=== PATIENT | female | born 1950 | race Caucasian/White ===

== ENCOUNTER → 2016-12-03 | Outpatient (CLI) | payer MEDICARE ==
--- NOTE | 2016-12-04 11:04 | MM ---
Reason for exam: screening (asymptomatic). Last mammogram was performed 2 years and 5 months ago. History: Patient is postmenopausal and has history of other cancer at age 63. Family history of breast cancer in paternal cousin at age 60. Benign right mammotome panel of the right breast, December 26, 2012. Took estrogen for 1 year beginning at age 49. Physical Findings: A clinical breast exam by your physician is recommended on an annual basis and results should be correlated with mammographic findings. MG Screening Mammo w CAD Bilateral CC and MLO view(s) were taken. Prior study comparison: July 14, 2014, bilateral MG screening mammo w CAD. July 13, 2013, right diagnostic mammogram w/CAD. There are scattered fibroglandular densities. Finding: There is a typically benign 6-7 mm high density mass in the subareolar position of the right breast consistent with probable cyst. New finding since July 14, 2014 and July 13, 2013. ASSESSMENT: Incomplete: need additional imaging evaluation, BI-RAD 0 RECOMMENDATION: Special view mammogram of the right breast. If lesion persists on supplemental views, image directed ultrasound is recommended. [facility] will attempt to contact patient to return for supplemental views and ultrasound if indicated.
== END | disposition home or self-care (01) ==
LOC: RADMAMWWP 12:52
PROVIDERS: ATTEND Family Medicine
DX: Z12.31 Encounter for screening mammogram for malignant neoplasm of breast (principal); R92.2 Inconclusive mammogram

== ENCOUNTER → 2016-12-12 | Outpatient (CLI) | payer MEDICARE ==
--- NOTE | 2016-12-13 08:23 | MM ---
Reason for exam: additional evaluation requested from abnormal screening. Last mammogram was performed less than 1 month ago. History: Patient is postmenopausal and has history of other cancer at age 63. Family history of breast cancer in paternal cousin at age 60. Benign right mammotome panel of the right breast, December 26, 2012. Took estrogen for 1 year beginning at age 49. Physical Findings: Nurse did not find any significant physical abnormalities on exam. MG 3D Work Up W/Cad RT LM, spot compression MLO, and spot compression CC view(s) were taken of the right breast. Prior study comparison: December 03, 2016, bilateral MG screening mammo w CAD. July 14, 2014, bilateral MG screening mammo w CAD. Finding: There is a 6 mm circumscribed round mass in the lower outer quadrant, anterior position of the right breast, persists on additional views. These results were verbally communicated with the patient and result sheet given to the patient on 12/12/16. ASSESSMENT: Incomplete: need additional imaging evaluation, BI-RAD 0 RECOMMENDATION: Ultrasound of the right breast.
--- NOTE | 2016-12-13 08:24 | USB ---
Reason for exam: additional evaluation requested from abnormal screening. History: Patient is postmenopausal and has history of other cancer at age 63. Family history of breast cancer in paternal cousin at age 60. Benign right mammotome panel of the right breast, December 26, 2012. Took estrogen for 1 year beginning at age 49. US Breast Workup Limited RT Right breast ultrasound demonstrates a 5 x 5 x 5mm round, solid, hypoechoic lesion at 8 o'clock. These results were verbally communicated with the patient and result sheet given to the patient on 12/12/16. ASSESSMENT: Suspicious, BI-RAD 4 RECOMMENDATION: Ultrasound core biopsy of the right breast. Called Dr. Sebastian with mammographic findings and has scheduled an appointment for the patient for 01/01/17 at 2:[address] Ferguson. PRELIMINARY REPORT CALLED AND FAXED TO DR. FERGUSON ON 12/13/16 AT 300/TP.
== END | disposition home or self-care (01) ==
LOC: RADMAMWWP 13:48
PROVIDERS: ATTEND Family Medicine
DX: R92.8 Other abnormal and inconclusive findings on diagnostic imaging of breast (principal)
CPT/HCPCS: 76642; G0206; G0279

== ENCOUNTER → 2017-01-17 | Day surgery (SDC) | payer MEDICARE ==
[~2017-01-17] MED LIST: ALPRAZolam 0.25 MG TAB ONE; BACITRACIN OINT 1 EACH PACKET TOPICAL ONE; LIDOCAINE 1% INJ 10MG/ML (20 ML MDV) ONE; LIDOCAINE 1%-EPI 1:100,000 20 ML VIAL ONE; SODIUM BICARB 4% 5 ML VIAL (0.48 MEQ/ML) ONE
--- NOTE | 2017-01-17 13:16 | USB ---
EXAMINATION TYPE: US biopsy breast VAD RT DATE OF EXAM: 01/17/2017 1:01 PM CLINICAL HISTORY: R92.8 Abnormal Mammogram. TECHNIQUE: Ultrasound guided core biopsy of right breast. COMPARISON: Previous mammogram dated 12/03/2016 and previous ultrasound dated 12/12 FINDINGS: The procedure of ultrasound guided core biopsy was explained to the patient. Benefits, alternatives, and risks were discussed. An informed consent was then obtained. The patient was placed in supine positioning for imaging and for the procedure. The overlying skin was prepped and draped in usual sterile fashion. Lidocaine buffered with bicarbonate was used as anesthetic into the skin and subcutaneous tissue up to area of concern in the right breast. A clau was made with surgical scalpel. Under ultrasound guidance, a 12-gauge vacuum assisted biopsy gun device was used to obtain 7 core samples. Following this, a biopsy clip was left in lesion. The patient tolerated the procedure well without any immediate complication. The patient was kept in the radiology department for short stay after the procedure and then discharged home in stable condition. A two-view mammogram was performed following the procedure to confirm clip placement. IMPRESSION: Successful, uncomplicated ultrasound guided core biopsy of area of concern in the right breast, full pathology results to follow. Pathology Results: High Risk BREAST, RIGHT, ULTRASOUND GUIDED CORE BIOPSY: ATYPICAL LOBULAR HYPERPLASIA AND INTRADUCTAL PAPILLOMA. FIBROCYSTIC CHANGE (STROMAL FIBROSIS, CYST FORMATION, APOCRINE METAPLASIA, ADENOSIS AND DUCT HYPERPLASIA). Recommendation Surgical consult of the right breast. [facility]
--- NOTE | 2017-01-17 13:17 | MM ---
EXAMINATION TYPE: US biopsy breast VAD RT DATE OF EXAM: 01/17/2017 1:01 PM CLINICAL HISTORY: R92.8 Abnormal Mammogram. TECHNIQUE: Ultrasound guided core biopsy of right breast. COMPARISON: Previous mammogram dated 12/03/2016 and previous ultrasound dated 12/12/2016 FINDINGS: The procedure of ultrasound guided core biopsy was explained to the patient. Benefits, alt ernatives, and risks were discussed. An informed consent was then obtained. The patient was placed in supine positioning for imaging and for the procedure. The overlying skin w as prepped and draped in usual sterile fashion. Lidocaine buffered with bicarbonate was used as anes thetic into the skin and subcutaneous tissue up to area of concern in the right breast. A clau was m aysha with surgical scalpel. Under ultrasound guidance, a 12-gauge vacuum assisted biopsy gun device was used to obtain 7 core andrew ples. Following this, a biopsy clip was left in lesion. The patient tolerated the procedure well without any immediate complication. The patient was kept in the radiology department for short stay after the procedure and then discharged home in stable condi tion. A two-view mammogram was performed following the procedure to confirm clip placement. IMPRESSION: Successful, uncomplicated ultrasound guided core biopsy of area of concern in the right b reast, full pathology results to follow.
== END ==
LOC: RADUSWWP 11:20
PROVIDERS: ATTEND Surgery
DX: R92.8 Other abnormal and inconclusive findings on diagnostic imaging of breast (principal); N62 Hypertrophy of breast; D24.1 Benign neoplasm of right breast; N60.31 Fibrosclerosis of right breast; N60.81 Other benign mammary dysplasias of right breast; N60.21 Fibroadenosis of right breast; N60.01 Solitary cyst of right breast; Z88.2 Allergy status to sulfonamides
CPT/HCPCS: 88305; 88342; 88341; 19083; G0206; A4648; J2001

== ENCOUNTER 2017-02-01 06:30 | Day surgery (SDC) | payer MEDICARE ==
[2017-01-29 14:18] VITALS: BMI 27.0
[~2017-02-01 06:30] MED LIST changes: -ALPRAZolam 0.25 MG TAB ONE; -BACITRACIN OINT 1 EACH PACKET TOPICAL ONE; +DEXAMETHASONE SOD PHOSPHATE 10 MG/ML 1 ML VIAL IV ONE; +HEPARIN SODIUM,PORCINE 5,000 UNIT/ML 1 ML VIAL SQ ONE; +HYDROmorphone 1 MG/ML 1 ML SYRINGE IVP PRN; -LIDOCAINE 1% INJ 10MG/ML (20 ML MDV) ONE; -LIDOCAINE 1%-EPI 1:100,000 20 ML VIAL ONE; +MIDAZOLAM 2 MG/2 ML VIAL IV PRN; +ONDANSETRON 4 MG/2 ML VIAL IVP ONE; -SODIUM BICARB 4% 5 ML VIAL (0.48 MEQ/ML) ONE; +ceFAZolin 2 GM in SODIUM CHLORIDE 0.9% 100 ML IVPB ONE
[2017-02-01] MEDS ORDERED: ALPRAZolam 0.25 MG TAB PO STA (07:14)
[2017-02-01 07:27] VITALS: RESP 16
[2017-02-01] MEDS: LACTATED RINGERS 1,000 ML IV SCH ×2 (07:38→10:58)
--- NOTE | 2017-02-01 07:56 | P.GSHP ---
History of Present Illness H&P Date: 02/01/17 Chief Complaint: Abnormal right mammogram This is a 58-year-old female who's had recent mammogram. Patient has an abnormal right mammogram. She presents today for right breast biopsy with needle localization. The patient a previous core biopsy which shows intraductal papilloma and atypical lobular hyperplasia. - Constitutional Constitutional: Reports as per HPI Past Medical History Past Medical History: Hypertension Additional Past Medical History / Comment(s): ABNORMAL MAMMOGRAM, HX OF PRE CANCEROUS SKIN LESIONS REMOVED History of Any Multi-Drug Resistant Organisms: None Reported Past Surgical History: Appendectomy Additional Past Surgical History / Comment(s): RT BREAST CORE BX 01/17/16 Past Anesthesia/Blood Transfusion Reactions: No Reported Reaction Past Psychological History: No Psychological Hx Reported Smoking Status: Never smoker Past Alcohol Use History: None Reported Past Drug Use History: None Reported - Past Family History Father Family Medical History: Cancer Additional Family Medical History / Comment(s): PROSTATE Medications and Allergies Home Medications Medication Instructions Recorded Confirmed Type Metoprolol Tartrate [Lopressor] 100 mg PO QAM 01/29/17 02/01/17 History Allergies Allergy/AdvReac Type Severity Reaction Status Date / Time sulfamethoxazole Allergy Swelling Verified 02/01/17 07:12 [From Bactrim] trimethoprim [From Bactrim] Allergy Swelling Verified 02/01/17 07:12 Surgical - Exam Vital Signs Temp Pulse Resp BP Pulse Ox 97.4 F L 68 16 167/96 95 02/01/17 07:26 02/01/17 07:26 02/01/17 07:26 02/01/17 07:26 02/01/17 07:26 - General well developed, no distress - Eyes PERRL - ENT normal pinna - Neck no masses - Respiratory normal expansion - Cardiovascular Rhythm: regular - Abdomen Abdomen: soft, non tender Breast exam is within normal limits Assessment and Plan Plan: Abnormal mammogram. We'll perform right breast needle localized biopsy.
[2017-02-01] MEDS ORDERED: SODIUM BICARB 4% 5 ML VIAL (0.48 MEQ/ML) MISCELLANE ONE (08:22)
[2017-02-01] MEDS ORDERED: LIDOCAINE 1% INJ 10MG/ML (20 ML MDV) SQ ONE (08:22)
[2017-02-01] MEDS ORDERED: fentaNYL (PF) 50 MCG/ML 2 ML AMP ONE (09:28)
[2017-02-01] MEDS ORDERED: SUCCINYLCHOLINE CHLORIDE 100 MG/5 ML SYR IV ONE (09:28)
[2017-02-01] MEDS ORDERED: ePHEDrine 50 MG/ML 1 ML AMP ONE (09:28)
[2017-02-01] MEDS ORDERED: PROPOFOL 10 MG/ML 20 ML VIAL IV ONE (09:28)
[2017-02-01] MEDS ORDERED: LIDOCAINE 1% INJ 10MG/ML (20 ML MDV) ONE (09:28)
[2017-02-01] MEDS ORDERED: MIDAZOLAM 2 MG/2 ML VIAL ONE (09:28)
[2017-02-01] MEDS ORDERED: BUPIVACAIN-EPI 0.25%-1:200,000 30 ML VIAL SQ ONE (09:56)
--- NOTE | 2017-02-01 10:30 | P.OP ---
Date of Procedure: 02/01/17 Preoperative Diagnosis: Abnormal right mammogram Postoperative Diagnosis: Defer to pathology Procedure(s) Performed: Right breast biopsy with needle localization Anesthesia: MAC Surgeon: Shankar Ferguson Estimated Blood Loss (ml): 5 Pathology: other (Right breast biopsy) Condition: stable Disposition: PACU Description of Procedure: The patient's placed on the operating table in the supine position. He she received generous he. Her right breast was prepped and draped usual sterile fashion. The wire had been placed near the 8 o'clock position. A skin incision was made the wire site and then using cautery and Harmonic scissors a core tissue was removed around the wire. The specimen was sent to mammography and the clip was contained within the biopsy cavity. The wound was packed for hemostasis. There is no bleeding seen. The skin was closed interrupted 3-0 Monocryl suture. Dermabond dressings was applied. Patient top she will was sent to recovery in stable condition.
[2017-02-01 10:48] VITALS: TEMP 97
--- NOTE | 2017-02-01 11:05 | MM ---
EXAMINATION TYPE: MG pre op needle loc RT DATE OF EXAM: 02/01/2017 9:13 AM COMPARISON: Previous mammogram dated 01/17/2017. CLINICAL HISTORY: High-risk biopsy. TECHNIQUE: Needle localization with wire placement and surgical excision of area of concern in the right breast. FINDINGS: The procedure of needle localization with wire placement and than surgical excision was explained to the patient. Benefits, alternatives, and risks were discussed. An informed consent was then obtained. The shortest pathway for procedure was chosen. Shortest pathway was lateral to medial approach. The overlying skin was prepped and draped in usual sterile fashion. Lidocaine buffered with bicarbonate was used as anesthetic into the skin and subcutaneous tissue up to the level of area of concern. A 9 cm needle was used. It was placed via a lateral approach under mammographic guidance. Subsequent 90 degrees mammogram show the needle to be in satisfactory position relative to the targeted area. At this point, wire was placed and the needle was withdrawn. The wire was fixed to patient's skin. Images were marked for surgeon. The patient tolerated the procedure well without any immediate complication. The patient was kept in the radiology department for short stay after the procedure and then taken to surgery for surgical excision. Targeted clip and wire are identified in specimen mammogram. The patient was kept in hospital for short stay after the procedure and then discharged home in stable condition. IMPRESSION: Successful, uncomplicated needle localization with wire placement and surgical excision of a previously placed clip in the right breast, full pathology results to follow. Pathology Results: High Risk RIGHT BREAST (LUMPECTOMY): CHANGES CONSISTENT WITH PREVIOUS BIOPSY SITE, WITH RESIDUAL FIBROCYSTIC CHANGES INCLUDING FOCAL ATYPICAL LOBULAR HYPERPLASIA AND MICROCALCIFICATIONS. Recommendation Follow up mammogram of the right breast in 6 months. МАРИНА
[2017-02-01 13:01] VITALS: BP 153/73; PULSE 78
--- NOTE | 2017-02-12 11:31 | CDI ---
According to the Official Guidelines for Coding and Reporting, in the outpatient setting diagnosis documented as consistent with fits the definition of a probable or suspected condition. The pathology report for Ms Mitchell indicates the Right breast lumpectomy findings as "changes consistent with previous biopsy site, with residual fibrocystic changes including focal atypical lobular hyperplasia and microcalcification". Further clarification is required when a suspected condition is reported. Please clarify the lumpectomy findings in an addendum to your procedure note for proper reporting purposes. Thank you for your time. BRONSON Samuels If you have any questions about this query, you may contact Platform Material Handling Supervisor, Zara Cheung at between 8am and 6pm Saturday-Saturday МАРИНА
== END 2017-02-01 12:38 | disposition home or self-care (01) ==
LOC: OR 06:30
PROVIDERS: ATTEND Surgery
DX: N60.11 Diffuse cystic mastopathy of right breast (principal); N62 Hypertrophy of breast; R92.0 Mammographic microcalcification found on diagnostic imaging of breast
CPT/HCPCS: 19101; 88342; 88307; 76098; 19281; J2250; J1644; J1100; J0690; J2405; J2001; J3010; J0330; J2704

== ENCOUNTER → 2017-09-10 | Outpatient (CLI) | payer MEDICARE ==
--- NOTE | 2017-09-10 13:38 | MM ---
Reason for exam: follow-up at short interval from prior study. Last mammogram was performed 8 months ago. History: Patient is postmenopausal, has history of high-risk lesion on a previous biopsy at age 66, and has history of other cancer at age 63. Family history of breast cancer in paternal cousin at age 60. High risk MG pre op needle loc RT of the right breast, February 01, 2017. High risk US biopsy breast VAD RT of the right breast, January 17, 2017. Benign right mammotome panel of the right breast, December 26, 2012. Took estrogen for 1 year beginning at age 49. Physical Findings: Nurse did not find any significant physical abnormalities on exam. MG 3D Diag Mammo W/Cad RT CC and MLO view(s) were taken of the right breast. Prior study comparison: January 17, 2017, right breast MG diagnostic mammo RT wo CAD. December 12, 2016, right breast MG 3d work up w/cad RT. There are scattered fibroglandular densities. No suspicious abnormality. Post therapy changes on the right breast. These results were verbally communicated with the patient and result sheet given to the patient on 09/10/17. ASSESSMENT: Benign, BI-RAD 2 RECOMMENDATION: Follow-up diagnostic mammogram of both breasts in 3 months. Back on schedule for November 2017.
== END | disposition home or self-care (01) ==
LOC: RADMAMWWP 12:37
PROVIDERS: ATTEND Family Medicine
DX: R92.8 Other abnormal and inconclusive findings on diagnostic imaging of breast (principal)
CPT/HCPCS: G0206; G0279

== ENCOUNTER → 2018-06-18 | Outpatient (CLI) | payer MEDICARE ==
--- NOTE | 2018-06-18 14:23 | MM ---
Reason for exam: follow-up at short interval from prior study. Last mammogram was performed 9 months ago. History: Patient is postmenopausal, has history of high-risk lesion on a previous biopsy at age 66, and has history of other cancer at age 63. Family history of breast cancer in paternal cousin at age 60. High risk MG pre op needle loc RT of the right breast, February 01, 2017. High risk US biopsy breast VAD RT of the right breast, January 17, 2017. Benign right mammotome panel of the right breast, December 26, 2012. Took estrogen for 1 year beginning at age 49. Physical Findings: Nurse did not find any significant physical abnormalities on exam. MG 3D Diag Mammo W/Cad GUI Bilateral CC and MLO view(s) were taken. Prior study comparison: September 10, 2017, right breast MG 3d diag mammo w/cad RT. January 17, 2017, right breast MG diagnostic mammo RT wo CAD. There are scattered fibroglandular densities. Post surgical changes in the right breast, stable. No significant new findings when compared with previous films. These results were verbally communicated with the patient and result sheet given to the patient on 06/18/18. ASSESSMENT: Benign, BI-RAD 2 RECOMMENDATION: Routine screening mammogram of both breasts in 1 year.
== END | disposition home or self-care (01) ==
LOC: RADMAMWWP 13:24
PROVIDERS: ATTEND Family Medicine
DX: R92.8 Other abnormal and inconclusive findings on diagnostic imaging of breast (principal)
CPT/HCPCS: 77066; G0279; 77062

== ENCOUNTER → 2022-06-29 | Outpatient (CLI) | payer MEDICARE ==
--- NOTE | 2022-07-02 08:44 | MM ---
Reason for Exam: Screening (asymptomatic). Last mammogram was performed 4 year(s) and 1 month(s) ago. Patient History: Menarche at age 10. First Full-Term at age 19. Postmenopausal. Estrogen for 1 year from age 49 until age 50. 02/01/2017, High risk Core Biopsy on the right side. 01/17/2017, High risk Core Biopsy on the right side. 12/26/2012, Benign Core Biopsy on the right side. Paternal cousin had breast cancer, age 60. Risk Values: Angélica 5 year model risk: 2.4%. NCI Lifetime model risk: 5.5%. Prior Study Comparison: 01/17/2017 Right Diagnostic Mammogram, [facility]. 09/10/2017 Right Diagnostic Mammogram, [facility]. 06/18/2018 Bilateral Diagnostic Mammogram, [facility]. Tissue Density: There are scattered fibroglandular densities. Findings: Analyzed By CAD. There is a distortion in the upper outer right breast present previously and stable compatible with prior surgery. A core markers within the mid right breast. No suspicious groups of microcalcifications, spiculated or lobular masses, architectural distortion or other secondary signs of malignancy are mammographically apparent. Overall Assessment: Benign, BI-RAD 2 Management: Screening Mammogram of both breasts in 1 year. A negative mammogram report should not preclude additional follow up of suspicious palpable abnormalities. Patient should continue monthly self breast exam. A clinical breast exam by your physician is recommended on an annual basis and results should be correlated with mammographic findings. Electronically signed and approved by: David Sandhu D.O. Radiologis
== END | disposition home or self-care (01) ==
LOC: RADMAMWWP 07:10
PROVIDERS: ATTEND Family Medicine
DX: Z12.31 Encounter for screening mammogram for malignant neoplasm of breast (principal); Z78.0 Asymptomatic menopausal state
CPT/HCPCS: 77063; 77067

== ENCOUNTER 2024-10-02 12:23 | Day surgery (SDC) | payer MEDICARE ==
[2024-09-30 13:27] VITALS: BMI 29.9
[2024-10-02] MEDS: LACTATED RINGERS 1,000 ML IV SCH (13:25)
[2024-10-02 13:29] VITALS: RESP 16; TEMP 97.6
[2024-10-02] MEDS: IV FLUID CONTINUATION 1,000 ML IV ONE (13:30)
[2024-10-02] MEDS ORDERED: PROPOFOL 10 MG/ML 20 ML VIAL IV ONE (13:50)
--- NOTE | 2024-10-02 14:10 | P.PCN ---
Date of Procedure: 10/02/24 Procedure(s) Performed: BRIEF HISTORY: Patient is a 74-year-old pleasant white female scheduled for an elective colonoscopy as a part of screening for colon cancer. Her last colonoscopy was 12 years ago PROCEDURE PERFORMED: Colonoscopy. PREOPERATIVE DIAGNOSIS: Screening for colon cancer. IV sedation per Anesthesia. PROCEDURE: After informed consent was obtained, the patient, was brought into the endoscopy unit. IV sedation was administered by Anesthesia under continuous monitoring. Digital rectal examination was normal. Initially the Olympus CF-160 flexible video colonoscope was then inserted in the rectum, gradually advanced into the cecum without any difficulty. Careful examination was performed as the scope was gradually being withdrawn. Ileocecal valve and the appendiceal orifice were visualized and appeared normal. Prep was excellent. Mucosa of the cecum, ascending colon, transverse colon, descending colon, sigmoid colon, and rectum appeared normal. Scattered sigmoid diverticulosis. Retroflexion was performed in the rectum and no lesions were seen. The patient tolerated the procedure well. IMPRESSION: Normal-appearing colon from rectum to cecum as of colorectal neoplasia. Scattered sigmoid diverticulosis. RECOMMENDATIONS: Findings of this examination were discussed with the patient as well as her family. She was advised to be on a high-fiber diet and take fiber supplements on a regular basis..
[2024-10-02 14:30] VITALS: BP 146/85; PULSE 62
== END 2024-10-02 14:53 | disposition home or self-care (01) ==
LOC: ORWHC2ENDO 12:23
PROVIDERS: ATTEND Internal Medicine Gastroenterology
DX: Z12.11 Encounter for screening for malignant neoplasm of colon (principal); K57.30 Diverticulosis of large intestine without perforation or abscess without bleeding; I10 Essential (primary) hypertension; K21.9 Gastro-esophageal reflux disease without esophagitis; E78.5 Hyperlipidemia, unspecified; Z79.899 Other long term (current) drug therapy; Z88.2 Allergy status to sulfonamides; Z90.49 Acquired absence of other specified parts of digestive tract
CPT/HCPCS: J2704; G0121